=== PATIENT | male | born 1980 | race Hispanic/Latino ===

== ENCOUNTER 2020-10-08 09:58 | Emergency (ER) | payer SELFPAY ==
--- NOTE | 2020-10-08 10:06 | Event Note ---
ED Screening Note ED Screening Note: 40-year-old male with prior history of stomach cancer with colon resection to the emerge department complaining of a few day history of abdominal pain associated with nausea and noticed some bloody stools. No fever chills or sweats but does have some pains that radiates across the abdomen and into the lower chest. This initial assessment/diagnostic orders/clinical plan/treatment(s) is/are subject to change based on patients health status, clinical progression and re- assessment by fellow clinical providers in the ED. Further treatment and workup at subsequent clinical providers discretion. Patient/guardian urged not to elope from the ED as their condition may be serious if not clinically assessed and managed. Initial orders include: Labs and urine CT scan
[2020-10-08 10:26] LABS: Amorphous Crystals,Urine Few; Bilirubin,Urine NEG (Negative); Blood,Urine NEG (Negative); Color,Urine Yellow (Yellow); Mucus,Urine 2+ /HPF; Urobilinogen,Urine < 2.0 mg/dL (<2.0)
[2020-10-08] MEDS ORDERED: ONDANSETRON 4 MG/2 ML INJ IV ONE (10:31)
[2020-10-08] MEDS ORDERED: FAMOTIDINE 20 MG/2 ML INJ IV ONE (10:31)
[2020-10-08] MEDS ORDERED: fentaNYL 100 MCG/2 ML INJ IV ONE (10:31)
[2020-10-08] MEDS ORDERED: SODIUM CHLORIDE 0.9% 1000 ML 1,000 ML IV ONE (10:31)
--- NOTE | 2020-10-08 10:37 | Emergency Department Report ---
HPI - General Chief Complaint: Abdominal Pain Time Seen by Provider: 10/08/20 10:06 - HPI HPI: Room 35 The patient is a 40-year-old male present with a chief complaint of abdominal pain. The patient states for the past 7 days he has had intermittent epigastric and bilateral upper quadrant pain. He states the pain is been intermittent and associated with nausea vomiting. The patient states last night he noticed some blood in his stool. Patient denies any history of fever. The patient states he believes food increases his pain. ED Past Medical Hx - Past Medical History Previous Medical History?: Yes Hx of Cancer: Yes (Colon cancer s/p rsxn & chemo 2009) - Surgical History Past Surgical History?: Yes Hx Cholecystectomy: Yes Additional Surgical History: Colon surgery for colon cancer. - Family History Family history: no significant - Social History Smoking Status: Former Smoker (None x15 years) Substance Use Type: None (Denies illicit drug use) - Medications Home Medications: Home Medications Medication Instructions Recorded Confirmed Last Taken Type Famotidine [Pepcid] 20 mg PO BID #30 tablet 10/08/20 Unknown Rx Ondansetron [Zofran ODT TAB] 8 mg PO Q8HR #20 tab.rapdis 10/08/20 Unknown Rx traMADoL [Ultram] 50 mg PO Q6HR PRN #10 tablet 10/08/20 Unknown Rx ED Review of Systems ROS: Stated complaint: STOMACH/BACK PAIN Other details as noted in HPI Constitutional: denies: fever Eyes: denies: eye pain ENT: denies: throat pain Respiratory: no symptoms reported Cardiovascular: denies: chest pain Endocrine: no symptoms reported Gastrointestinal: abdominal pain, nausea, vomiting, hematochezia Genitourinary: denies: dysuria Musculoskeletal: back pain Neurological: denies: headache Physical Exam - Physical Exam Vital Signs: Vital Signs 10/08/20 10:02 Temperature 98.1 F Pulse Rate 72 Respiratory 24 Rate Blood Pressure 113/70 O2 Sat by Pulse 98 Oximetry Physical Exam: GENERAL: The patient is well-developed well-nourished male lying on stretcher appearing to be in mild. [] HEENT: Normocephalic. Atraumatic. Extraocular motions are intact. Patient has moist mucous membranes. NECK: Supple. Trachea midline CHEST/LUNGS: Clear to auscultation. There is no respiratory distress noted. HEART/CARDIOVASCULAR: Regular. There is no tachycardia. There is no gallop rub or murmur. ABDOMEN: Abdomen is soft, with tenderness to palpation in the right upper quadrant, midepigastric and left upper quadrant. Patient has normal bowel sounds. There is no abdominal distention. SKIN: There is no rash. There is no edema. There is no diaphoresis. NEURO: The patient is awake, alert, and oriented. The patient is cooperative. The patient has no focal neurologic deficits. The patient has normal speech MUSCULOSKELETAL: There is no evidence of acute injury. RECTAL: Guaiac negative. No evidence of external or internal hemorrhoids ED Course Vital Signs 10/08/20 10:02 Temperature 98.1 F Pulse Rate 72 Respiratory 24 Rate Blood Pressure 113/70 O2 Sat by Pulse 98 Oximetry ED Medical Decision Making - Lab Data Result diagrams: 10/08/20 10:30 10/08/20 10:30 Laboratory Tests 10/08/20 10/08/20 10/08/20 10:30 10:30 10:30 WBC 6.9 RBC 4.37 Hgb 13.7 Hct 40.1 MCV 92 MCH 31 MCHC 34 RDW 13.8 Plt Count 260 Lymph % (Auto) 21.0 [place] % (Auto) 9.4 H Eos % (Auto) 2.1 Baso % (Auto) 0.7 Lymph # (Auto) 1.4 [place] # (Auto) 0.6 Eos # (Auto) 0.1 Baso # (Auto) 0.0 Seg Neutrophils % 66.8 Seg Neutrophils # 4.6 PT 12.6 INR 0.95 APTT 28.0 Sodium 135 L Potassium 4.1 Chloride 100.6 Carbon Dioxide 29 Anion Gap 10 BUN 19 Creatinine 1.2 Estimated GFR > 60 BUN/Creatinine Ratio 16 Glucose 103 H Calcium 8.7 Total Bilirubin 0.70 AST 30 ALT 24 Alkaline Phosphatase 88 Total Protein 7.0 Albumin 4.2 Albumin/Globulin Ratio 1.5 Lipase 17 Urine Color Urine Turbidity Urine pH Ur Specific [place] Urine Protein Urine Glucose (UA) Urine Ketones Urine Blood Urine Nitrite Urine Bilirubin Urine Urobilinogen Ur Leukocyte Esterase Urine WBC (Auto) Urine RBC (Auto) Amorphous Crystals Urine Mucus Blood Type Antibody Screen 10/08/20 10/08/20 10:34 Unknown WBC RBC Hgb Hct MCV MCH MCHC RDW Plt Count Lymph % (Auto) [place] % (Auto) Eos % (Auto) Baso % (Auto) Lymph # (Auto) [place] # (Auto) Eos # (Auto) Baso # (Auto) Seg Neutrophils % Seg Neutrophils # PT INR APTT Sodium Potassium Chloride Carbon Dioxide Anion Gap BUN Creatinine Estimated GFR BUN/Creatinine Ratio Glucose Calcium Total Bilirubin AST ALT Alkaline Phosphatase Total Protein Albumin Albumin/Globulin Ratio Lipase Urine Color Yellow Urine Turbidity Slightly-cloudy Urine pH 7.0 Ur Specific [place] 1.027 Urine Protein 100 mg/dl Urine Glucose (UA) Neg Urine Ketones Neg Urine Blood Neg Urine Nitrite Neg Urine Bilirubin Neg Urine Urobilinogen < 2.0 Ur Leukocyte Esterase Neg Urine WBC (Auto) 3.0 Urine RBC (Auto) 5.0 Amorphous Crystals Few Urine Mucus 2+ Blood Type A NEGATIVE Antibody Screen Negative - Radiology Data Radiology results: report reviewed (CT abdomen pelvis), image reviewed (CT abdomen pelvis) [facility] [address] [place] [address] Cat Scan Report Signed Patient: MARLENE FRANCIS MR#: [id number] : 1980 Acct:[id number] Age/Sex: 40 / M ADM Date: 10/08/20 Loc: ED Attending Dr: Ordering Physician: ARTHUR TUCKER Date of Service: 10/08/20 Procedure(s): CT abdomen pelvis w con Accession Number(s): [id number] cc: ARTHUR TUCKER CT ABDOMEN AND PELVIS WITH CONTRAST HISTORY: Abdominal pain COMPARISON: None TECHNIQUE: Routine abdominal and pelvic CT exam performed following intravenous contrast administration. Patient received 100 cc IV Omnipaque 300. All CT scans at this location are performed using CT dose reduction for ALARA by means of automated exposure control. FINDINGS: CT ABDOMEN: Lung Bases: No significant abnormality. Liver: No significant abnormality. Biliary: Gallbladder is surgically absent. Spleen: No significant abnormality. Unenlarged. Pancreas: No significant abnormality. Adrenals: No significant abnormality. Kidneys: There are some small 3 mm stones in the right kidney without hydronephrosis. Lymphatics: No lymphadenopathy. Vasculature: No significant abnormality. Bowel/Peritoneum: There has been previous partial colectomy. There is no obstruction, pneumatosis, or free air. CT PELVIC: : No significant abnormality. Lymphatics: No lymphadenopathy. Osseous Structures: No aggressive appearing osseous lesions. Additional Findings: None IMPRESSION: 1. No acute or concerning abnormality in the abdomen or pelvis. 2. Previous partial colectomy. Signer Name: Sami Cunha MD Signed: 10/08/2020 12:12 PM Workstation Name: [id number] Transcribed By: KOLE Dictated By: Sami Cunha MD Electronically Authenticated By: Sami Cunha MD Signed Date/Time: 10/08/20 121 DD/ 09 TD/TT: - Differential Diagnosis Peptic ulcer disease, gastritis, pancreatitis, colon cancer Critical care attestation.: If time is entered above; I have spent that time in minutes in the direct care of this critically ill patient, excluding procedure time. ED Disposition Clinical Impression: Acute abdominal pain Disposition: TO HOME OR SELFCARE Is pt being admited?: No Does the pt Need Aspirin: No Condition: Stable Instructions: Abdominal Pain, Adult Additional Instructions: Return to the emergency department should you develop worsening symptoms, inability to tolerate food or liquids, high fever or any other concerns Prescriptions: Famotidine [Pepcid] 20 mg PO BID #30 tablet traMADoL [Ultram] 50 mg PO Q6HR PRN #10 tablet PRN Reason: Pain Ondansetron [Zofran ODT TAB] 8 mg PO Q8HR #20 tab.[place] Referrals: PRIMARY CAREMD [Referring] - 3-5 Days NICK MAR MD [Staff Physician] - 3-5 Days (Dr. Mar is a layer up. Please follow-up with him or your own layer up for further evaluation) Time of Disposition: 12:56
[2020-10-08 10:54] LABS: Basophils % (Auto) 0.7 % (0.0-1.8); Eosinophils # (Auto) 0.1 K/mm3 (0.0-0.4); Eosinophils % (Auto) 2.1 % (0.0-4.3); Hematocrit 40.1 % (35.5-45.6); Hemoglobin 13.7 gm/dl (11.8-15.2); Lymphocytes # (Auto) 1.4 K/mm3 (1.2-5.4); Mean Corpuscular HGB Conc 34 % (32-34); Mean Corpuscular Volume 92 fl (84-94); Monocytes # (Auto) 0.6 K/mm3 (0.0-0.8); Monocytes % (Auto) 9.4 % (0.0-7.3); Platelet Count 260 K/mm3 (140-440); Red Blood Count 4.37 M/mm3 (3.65-5.03); Red Cell Distribution Width 13.8 % (13.2-15.2)
[2020-10-08 11:08] LABS: INR 0.95 (0.87-1.13)
[2020-10-08 11:18] LABS: Alanine Aminotransferase 24 units/L (7-56); Albumin 4.2 g/dL (3.9-5); BUN/Creatinine Ratio 16; Blood Urea Nitrogen 19 mg/dL (9-20); Calcium 8.7 mg/dL (8.4-10.2); Hemolysis Index 3
--- NOTE | 2020-10-08 12:16 | Cat Scan Report ---
CT ABDOMEN AND PELVIS WITH CONTRAST HISTORY: Abdominal pain COMPARISON: None TECHNIQUE: Routine abdominal and pelvic CT exam performed following intravenous contrast administrat ion. Patient received 100 cc IV Omnipaque 300. All CT scans at this location are performed using CT d ose reduction for ALARA by means of automated exposure control. FINDINGS: CT ABDOMEN: Lung Bases: No significant abnormality. Liver: No significant abnormality. Biliary: Gallbladder is surgically absent. Spleen: No significant abnormality. Unenlarged. Pancreas: No significant abnormality. Adrenals: No significant abnormality. Kidneys: There are some small 3 mm stones in the right kidney without hydronephrosis. Lymphatics: No lymphadenopathy. Vasculature: No significant abnormality. Bowel/Peritoneum: There has been previous partial colectomy. There is no obstruction, pneumatosis, or free air. CT PELVIC: : No significant abnormality. Lymphatics: No lymphadenopathy. Osseous Structures: No aggressive appearing osseous lesions. Additional Findings: None IMPRESSION: 1. No acute or concerning abnormality in the abdomen or pelvis. 2. Previous partial colectomy. Signer Name: Sami Cunha MD Signed: 10/08/2020 12:12 PM Workstation Name: [id number]
[2020-10-08 12:52] VITALS: BP 110/62
[2020-10-08 13:50] LABS: Bilirubin,Direct < 0.2 mg/dL (0-0.2)
== END 2020-10-08 13:15 | disposition home or self-care (01) ==
LOC: ED 09:58
DX: R10.9 Unspecified abdominal pain (principal); Z79.899 Other long term (current) drug therapy
CPT/HCPCS: 36415; 74177; 80048; 80076; 81001; 82271; 83690; 85025; 85610; 85730; 86850; 86900; 86901; 96361; 96374; 96375; 99284; J2405; J3010; J7030; Q9967